=== PATIENT | female | born 1970 | race African-American/Black ===

== ENCOUNTER 2020-07-22 10:02 | Inpatient (IN) | payer OTHER, SELFPAY ==
[~2020-07-22] VITALS: Ht 165.1 cm; Wt 77.6 kg
[2020-07-22 11:13] LABS: BASOPHIL % 0.4 % (0-2); PLATELET COUNT 193 x10^3mcL (130-400); RED CELL DISTRIBUTION WIDTH 12.8 % (11.5-14.5)
[2020-07-22 11:28] LABS: CALCIUM 8.7 mg/dL (8.5-10.1); CARBON DIOXIDE 25.5 mmol/L (21-32); CHLORIDE SERUM 95 mmol/L (98-107); CREATININE SERUM 0.9 mg/dL (0.6-1.0); GFR1 > 60 mL/min; GLUCOSE SERUM 411 mg/dL (74-106); POTASSIUM SERUM 3.4 mmol/L (3.5-5.1); SODIUM SERUM 132 mmol/L (136-145)
[2020-07-22 11:32] LABS: ALKALINE PHOSPHATASE 58 U/L (46-116); ALT/SGPT 24 U/L (14-59); AST/SGOT 26 U/L (15-37); BILIRUBIN TOTAL 0.65 mg/dL (0.20-1.00); C REACTIVE PROTEIN 3.1 mg/dL (<=0.9); CHOLESTEROL 139 mg/dL (<200); LACTIC DEHYDROGENASE (LDH) 342 U/L (100-190); LIPASE 55 IU/L (73-393); TOTAL PROTEIN, SERUM 7.6 g/dL (6.4-8.2)
[2020-07-22 11:37] LABS: ALBUMIN 2.5 g/dL (3.4-5.0); HDL CHOLESTEROL 21 mg/dL (40-60)
[2020-07-22 15:19] VITALS: BP 131/87
[2020-07-22 16:30] VITALS: BP 136/81
[2020-07-22 16:39] VITALS: Ht 165.1 cm; Wt 77.6 kg
[2020-07-22 20:55] VITALS: BP 125/76
[2020-07-23 06:00] VITALS: BP 132/90
[2020-07-23 08:08] LABS: UA SPECIFIC GRAVITY 1.025 (1.005-1.035); microscopic required? YES; urine erythrocyte NEGATIVE (NEGATIVE)
[2020-07-23 08:21] VITALS: BP 113/76
[2020-07-23 12:08] VITALS: BP 102/63
[2020-07-23 16:43] LABS: BASOPHIL % 0.4 % (0-2); PLATELET COUNT 216 x10^3mcL (130-400); RED CELL DISTRIBUTION WIDTH 12.8 % (11.5-14.5)
[2020-07-23 16:53] LABS: CALCIUM 8.4 mg/dL (8.5-10.1); CARBON DIOXIDE 26.8 mmol/L (21-32); CHLORIDE SERUM 103 mmol/L (98-107); CREATININE SERUM 0.7 mg/dL (0.6-1.0); GFR1 > 60 mL/min; GLUCOSE SERUM 220 mg/dL (74-106); POTASSIUM SERUM 3.5 mmol/L (3.5-5.1); SODIUM SERUM 138 mmol/L (136-145)
[2020-07-23 18:26] VITALS: BP 123/79
[2020-07-23 20:52] VITALS: BP 115/74
[2020-07-23 23:38] VITALS: BP 132/76
== END 2020-07-24 00:05 | disposition short-term general hospital (02) | DRG 179 ==
LOC: ED 10:02 → DU 12:36
PROVIDERS: Emergency Medicine; Internal Medicine; ADMIT Student in an Organized Health Care Education/Training Program; ATTEND Student in an Organized Health Care Education/Training Program
DX: U07.1 COVID-19 (principal); E11.9 Type 2 diabetes mellitus without complications; E87.6 Hypokalemia; E88.09 Other disorders of plasma-protein metabolism, not elsewhere classified; E11.65 Type 2 diabetes mellitus with hyperglycemia; Z98.891 History of uterine scar from previous surgery; Z83.3 Family history of diabetes mellitus; Z79.899 Other long term (current) drug therapy; Z79.84 Long term (current) use of oral hypoglycemic drugs; Z91.19 Patient's noncompliance with other medical treatment and regimen
CPT/HCPCS: 36600; 82962; 83880; 85378; 87804; C9113; G0378; J1650; J1815; J1956; J2405; J3535; J7030; Q0092; U0003